=== PATIENT | male | born 1970 | race Caucasian/White ===

== ENCOUNTER 2019-10-03 14:44 | Emergency (ER) | payer BC ==
[2019-10-03] MEDS ORDERED: ONDANSETRON 4 MG/2 ML VIAL ONE (15:03)
[2019-10-03] MEDS ORDERED: FAMOTIDINE 20 MG/2 ML VIAL IV ONE (15:03)
--- NOTE | 2019-10-03 15:23 | RAD REPORT ---
EXAM DESCRIPTION: RAD - Abdomen Acute Series - 10/03/2019 3:16 pm CLINICAL HISTORY: ABD PAIN Nausea and vomiting, patient provided history of liver fibrosis COMPARISON: No comparisons FINDINGS: Lung volumes are low. This accentuates an interstitial pattern that is probably baseline. No peripheral mass, consolidation or failure finding. Heart size and pulmonary vasculature are normal . No pleural effusion, pneumothorax or other acute cardiopulmonary process seen. Bowel gas pattern is nonspecific. No bowel obstruction, free air or other acute findings. Moderate st ool volume fills but does not dilate the left-sided colon from splenic flexure to distal rectum. No s uspicious calcifications. No other suspicious for significant findings. IMPRESSION: Shallow inspiration chest film showing no acute finding. Moderate stool volume left side of the colon. No obstruction, free air or other emergent finding.
[2019-10-03 15:41] LABS: Basophils % 0.2 % (0-1.3); Hematocrit 46.4 % (39.6-49.0); Lymphocytes % 8.6 % (15.3-44.8); MPV 9.5 fL (7.6-11.3); RBC Red Blood Cell Count 4.72 M/uL (4.33-5.43)
[2019-10-03 15:45] LABS: Protime INR 1.07
[2019-10-03 16:00] LABS: ALT/SGPT 61 U/L (12-78); AST/SGOT 38 U/L (15-37); Albumin 4.6 g/dL (3.4-5.0); Alkaline Phosphatase 126 U/L (45-117); BUN Blood Urea Nitrogen 19 mg/dL (7-18); Bicarbonate 25 mmol/L (21-32); Bilirubin Direct 0.2 mg/dL (0-0.2); Bilirubin Total 0.8 mg/dL (0.2-1.0); Glucose Level 104 mg/dL (74-106); Lipase 219 U/L (73-393); Potassium 3.7 mmol/L (3.5-5.1); Protein, Total 8.9 g/dL (6.4-8.2); Sodium Level 138 mmol/L (136-145)
[2019-10-03] MEDS ORDERED: NA CHLORIDE 0.9% 1,000 ML ONE (16:12)
[2019-10-03] MEDS ORDERED: PANTOPRAZOLE 40 MG INJ ONE (16:13)
--- NOTE | 2019-10-03 16:37 | ER ---
Nurse's Notes [facility] Name: Bernardo Glover Age: 48 yrs Sex: Male : 1970 Arrival Date: 10/03/2019 Time: 14:49 Bed 17 Private MD: Diagnosis: Vomiting;Dehydration;Hyperventilation Presentation: 10/03 14:50 Presenting complaint: EMS states: called out for N/V and abd pain that started about 1 em hour ago, reports hx of liver fibrosis. Transition of care: patient was not received from another setting of care. Onset of symptoms was October 03, 2019. Risk Assessment: Do you want to hurt yourself or someone else? Patient reports no desire to harm self or others. Initial Sepsis Screen: Does the patient meet any 2 criteria? No. Patient's initial sepsis screen is negative. Does the patient have a suspected source of infection? No. Patient's initial sepsis screen is negative. Care prior to arrival: Medication(s) given: Normal saline infusion, 500 mL, Phenergan, 12.5 mg, Toradol 30 mg IV initiated. 18 GA, in the right antecubital area. 14:50 Method Of Arrival: EMS: [facility] em 14:50 Acuity: AURELIANO 3 iw Historical: - Allergies: 14:55 No Known Allergies; em - PMHx: 14:55 liver fibrosis; em - PSHx: 14:55 left ankle sx; em - Immunization history:: Adult Immunizations up to date. - Social history:: Smoking status: Patient/guardian denies using tobacco. - Ebola Screening: : Patient negative for fever greater than or equal to 101.5 degrees Fahrenheit, and additional compatible Ebola Virus Disease symptoms Patient denies exposure to infectious person Patient denies travel to an Ebola-affected area in the 21 days before illness onset No symptoms or risks identified at this time. - Family history:: not pertinent. Screenin:49 Abuse screen: Denies threats or abuse. Nutritional screening: No deficits noted. em Tuberculosis screening: No symptoms or risk factors identified. Fall Risk None identified. Assessment: 14:49 General: Appears in no apparent distress. comfortable, Behavior is calm, cooperative. em Pain: Complains of pain in epigastric area Pain currently is 3 out of 10 on a pain scale. at worst was 8 out of 10 on a pain scale. Quality of pain is described as crampy, Pain began 1 hour ago. Neuro: Level of Consciousness is awake, alert, obeys commands, Oriented to person, place, time, situation, Appropriate for age. Cardiovascular: Capillary refill < 3 seconds Patient's skin is warm and dry. Respiratory: Airway is patent Respiratory effort is even, unlabored, Respiratory pattern is regular, symmetrical. GI: Abdomen is flat, Bowel sounds present X 4 quads. Abd is soft X 4 quads Abdomen is tender to palpation in epigastric area. Derm: Skin is intact, is healthy with good turgor, Skin is pink, warm \T\ dry. Musculoskeletal: Capillary refill < 3 seconds, Range of motion: intact in all extremities. 15:56 Reassessment: Patient appears in no apparent distress at this time. Patient and/or em family updated on plan of care and expected duration. Pain level reassessed. Patient is alert, oriented x 3, equal unlabored respirations, skin warm/dry/pink. 17:00 Reassessment: will be discharged after completion of NS bolus and orthostatics. em 17:32 Reassessment: Patient appears in no apparent distress at this time. Patient and/or em family updated on plan of care and expected duration. Pain level reassessed. Patient is alert, oriented x 3, equal unlabored respirations, skin warm/dry/pink. Vital Signs: 14:55 BP 129 / 86; Pulse 94; Resp 18; Temp 97.8(O); Pulse Ox 98% on R/A; Weight 106.59 kg; em Height 6 ft. 0 in. (182.88 cm); Pain 3/10; 15:55 BP 126 / 79; Pulse 91; Resp 18; Pulse Ox 99% on R/A; Pain 3/10; em 16:30 BP 114 / 68; Pulse 77; Resp 18; Pulse Ox 99% on R/A; em 17:39 BP 114 / 61 LA Supine (auto/lg); Pulse 88; Resp 22; Pulse Ox 98% ; ms 17:39 BP 115 / 76 LA Sitting (auto/lg); Pulse 86; Resp 19; Pulse Ox 97% ; ms 17:39 BP 109 / 83 LA Standing (auto/lg); Pulse 98; Resp 20; Pulse Ox 100% ; ms 14:55 Body Mass Index 31.87 (106.59 kg, 182.88 cm) em ED Course: 14:49 Patient arrived in ED. em 14:49 Patient has correct armband on for positive identification. Placed in gown. Bed in low em position. Call light in reach. Side rails up X2. Adult w/ patient. hall monitor on. Pulse ox on. NIBP on. 14:49 Maintain EMS IV. Dressing intact. Good blood return noted. Site clean \T\ dry. Gauge \T\ em site: 18 G RAC. 14:50 Art Reeder MD is Attending Physician. [facility] 14:55 Arm band placed on. em 14:56 Sarabjit Pate LVN is Primary Nurse. em 15:24 Triage completed. iw 16:36 Erick Mann MD is Referral Physician. lynette 17:49 No provider procedures requiring assistance completed. IV discontinued, intact, em bleeding controlled, No redness/swelling at site. Pressure dressing applied. Administered Medications: 15:28 Drug: Zofran 4 mg Route: IVP; Site: right antecubital; iw 16:25 Follow up: Response: No adverse reaction; Nausea is decreased em 15:30 Drug: Pepcid 20 mg Route: IVP; Site: right antecubital; iw 16:24 Follow up: Response: No adverse reaction em 16:13 Not Given (Duplicate Order): ProTONIX 40 mg IVP once lynette 16:17 Drug: NS 0.9% 1000 ml Route: IV; Rate: 1 bolus; Site: right antecubital; em 17:34 Follow up: IV Status: Completed infusion; IV Intake: 1000ml em Intake: 17:34 IV: 1000ml; Total: 1000ml. em Outcome: 16:36 Discharge ordered by . [facility] 17:49 Discharged to home ambulatory, with family. em 17:49 Condition: good 17:49 Discharge instructions given to patient, family, Instructed on discharge instructions, follow up and referral plans. medication usage, Demonstrated understanding of instructions, follow-up care, medications, Prescriptions given X 2. 17:55 Patient left the ED. em Signatures: Art Reeder MD MD cha Munoz, Edgar, PEARL TECHNICIAN PEARL TECHNICIAN em Lorena Noyola, RN RN Alexandria Limon ms
--- NOTE | 2019-10-03 16:37 | EDPHYS ---
Physician Documentation [facility] Name: Bernardo Glover Age: 48 yrs Sex: Male : 1970 Arrival Date: 10/03/2019 Time: 14:49 Bed 17 Private MD: ED Physician Art Reeder HPI: 10/03 16:13 This 48 yrs old Male presents to ER via EMS with complaints of Abdominal lynette Pain, Nausea/Vomiting. 16:13 The patient presents to the emergency department with nausea, that is moderate, lynette vomiting, that is continuous. Onset: The symptoms/episode began/occurred just prior to arrival. Possible causes: unknown. The symptoms are aggravated by movement. Severity of symptoms: At their worst the symptoms were moderate in the emergency department the symptoms have improved moderately. Historical: - Allergies: 14:55 No Known Allergies; em - PMHx: 14:55 liver fibrosis; em - PSHx: 14:55 left ankle sx; em - Immunization history:: Adult Immunizations up to date. - Social history:: Smoking status: Patient/guardian denies using tobacco. - Ebola Screening: : Patient negative for fever greater than or equal to 101.5 degrees Fahrenheit, and additional compatible Ebola Virus Disease symptoms Patient denies exposure to infectious person Patient denies travel to an Ebola-affected area in the 21 days before illness onset No symptoms or risks identified at this time. - Family history:: not pertinent. ROS: 16:13 Constitutional: Negative for fever, chills, and weight loss, Eyes: Negative for injury, lynette pain, redness, and discharge, ENT: Negative for injury, pain, and discharge, Neck: Negative for injury, pain, and swelling, Cardiovascular: Negative for chest pain, palpitations, and edema, Respiratory: Negative for shortness of breath, cough, wheezing, and pleuritic chest pain, Back: Negative for injury and pain, : Negative for injury, bleeding, discharge, and swelling, MS/Extremity: Negative for injury and deformity, Skin: Negative for injury, rash, and discoloration, Neuro: Negative for headache, weakness, numbness, tingling, and seizure, Psych: Negative for depression, anxiety, suicide ideation, homicidal ideation, and hallucinations, Allergy/Immunology: Negative for hives, rash, and allergies, Endocrine: Negative for neck swelling, polydipsia, polyuria, polyphagia, and marked weight changes, Hematologic/Lymphatic: Negative for swollen nodes, abnormal bleeding, and unusual bruising. 16:13 Abdomen/GI: Positive for nausea and vomiting. Exam: 16:13 Constitutional: This is a well developed, well nourished patient who is awake, alert, lynette and in no acute distress. Head/Face: Normocephalic, atraumatic. Eyes: Pupils equal round and reactive to light, extra-ocular motions intact. Lids and lashes normal. Conjunctiva and sclera are non-icteric and not injected. Cornea within normal limits. Periorbital areas with no swelling, redness, or edema. ENT: Nares patent. No nasal discharge, no septal abnormalities noted. Tympanic membranes are normal and external auditory canals are clear. Oropharynx with no redness, swelling, or masses, exudates, or evidence of obstruction, uvula midline. Mucous membranes moist. Neck: Trachea midline, no thyromegaly or masses palpated, and no cervical lymphadenopathy. Supple, full range of motion without nuchal rigidity, or vertebral point tenderness. No Meningismus. Chest/axilla: Normal chest wall appearance and motion. Nontender with no deformity. No lesions are appreciated. Cardiovascular: Regular rate and rhythm with a normal S1 and S2. No gallops, murmurs, or rubs. Normal PMI, no JVD. No pulse deficits. Respiratory: Lungs have equal breath sounds bilaterally, clear to auscultation and percussion. No rales, rhonchi or wheezes noted. No increased work of breathing, no retractions or nasal flaring. Abdomen/GI: Soft, non-tender, with normal bowel sounds. No distension or tympany. No guarding or rebound. No evidence of tenderness throughout. Back: No spinal tenderness. No costovertebral tenderness. Full range of motion. Male : Normal genitalia with no discharge or lesions. Skin: Warm, dry with normal turgor. Normal color with no rashes, no lesions, and no evidence of cellulitis. MS/ Extremity: Pulses equal, no cyanosis. Neurovascular intact. Full, normal range of motion. Neuro: Awake and alert, GCS 15, oriented to person, place, time, and situation. Cranial nerves II-XII grossly intact. Motor strength 5/5 in all extremities. Sensory grossly intact. Cerebellar exam normal. Normal gait. Psych: Awake, alert, with orientation to person, place and time. Behavior, mood, and affect are within normal limits. Vital Signs: 14:55 BP 129 / 86; Pulse 94; Resp 18; Temp 97.8(O); Pulse Ox 98% on R/A; Weight 106.59 kg; em Height 6 ft. 0 in. (182.88 cm); Pain 3/10; 15:55 BP 126 / 79; Pulse 91; Resp 18; Pulse Ox 99% on R/A; Pain 3/10; em 16:30 BP 114 / 68; Pulse 77; Resp 18; Pulse Ox 99% on R/A; em 17:39 BP 114 / 61 LA Supine (auto/lg); Pulse 88; Resp 22; Pulse Ox 98% ; ms 17:39 BP 115 / 76 LA Sitting (auto/lg); Pulse 86; Resp 19; Pulse Ox 97% ; ms 17:39 BP 109 / 83 LA Standing (auto/lg); Pulse 98; Resp 20; Pulse Ox 100% ; ms 14:55 Body Mass Index 31.87 (106.59 kg, 182.88 cm) em MDM: 14:50 Patient medically screened. [facility] 16:15 Data reviewed: vital signs, nurses notes, lab test result(s), EKG, radiologic studies, [facility] plain films. 10/03 14:51 Order name: Basic Metabolic Panel [facility] 10/03 14:51 Order name: CBC with Diff [facility] 10/03 14:51 Order name: Creatinine for Radiology [facility] 10/03 14:51 Order name: Hepatic Function [facility] 10/03 14:51 Order name: Lipase [facility] 10/03 14:51 Order name: Acetaminophen [facility] 10/03 14:51 Order name: ETOH Level [facility] 10/03 14:51 Order name: PT-INR [facility] 10/03 14:51 Order name: Ptt, Activated [facility] 10/03 14:51 Order name: Salicylate [facility] 10/03 14:51 Order name: Urine Drug Screen [facility] 10/03 15:43 Order name: CBC with Automated Diff; Complete Time: 16:11 [facility] 10/03 15:46 Order name: Protime (+INR); Complete Time: 16:11 [facility] 10/03 15:46 Order name: PTT, Activated Partial Thromb; Complete Time: 16:11 [facility] 10/03 14:51 Order name: EKG; Complete Time: 14:52 [facility] 10/03 14:53 Order name: Abdomen Acute Series XRAY [facility] 10/03 15:39 Order name: RAD; Complete Time: 15:42 [facility] 10/03 15:57 Order name: Salicylates Level; Complete Time: 16:11 [facility] 10/03 16:00 Order name: Basic Metabolic Panel; Complete Time: 16:11 [facility] 10/03 16:00 Order name: Liver (Hepatic) Function; Complete Time: 16:11 [facility] 10/03 16:00 Order name: Lipase; Complete Time: 16:11 [facility] 10/03 16:01 Order name: Acetaminophen Level; Complete Time: 16:11 [facility] 10/03 16:01 Order name: Alcohol Serum/Plasma; Complete Time: 16:11 [facility] 10/03 16:10 Order name: Creatinine (Radiology Only); Complete Time: 16:11 [facility] 10/03 16:42 Order name: Urine Dipstick--Ancillary (enter results) 10/03 16:56 Order name: Urine Drug Screen [facility] 10/03 14:51 Order name: IV Saline Lock; Complete Time: 14:57 [facility] 10/03 14:51 Order name: Labs collected and sent; Complete Time: 14:59 [facility] 10/03 14:51 Order name: EKG - Nurse/Tech; Complete Time: 14:52 [facility] 10/03 14:51 Order name: Urine Dipstick-Ancillary (obtain specimen); Complete Time: 16:42 [facility] 10/03 16:35 Order name: Orthostatics; Complete Time: 17:49 [facility] Administered Medications: 15:28 Drug: Zofran 4 mg Route: IVP; Site: right antecubital; iw 16:25 Follow up: Response: No adverse reaction; Nausea is decreased em 15:30 Drug: Pepcid 20 mg Route: IVP; Site: right antecubital; iw 16:24 Follow up: Response: No adverse reaction em 16:13 Not Given (Duplicate Order): ProTONIX 40 mg IVP once lynette 16:17 Drug: NS 0.9% 1000 ml Route: IV; Rate: 1 bolus; Site: right antecubital; em 17:34 Follow up: IV Status: Completed infusion; IV Intake: 1000ml em Disposition: 10/03/19 16:36 Discharged to Home. Impression: Vomiting, Dehydration, Hyperventilation. - Condition is Stable. - Discharge Instructions: Dehydration, Adult, Hyperventilation, Nausea and Vomiting, Adult, Nausea and Vomiting, Adult, [id number], Dehydration, Adult, [id number]. - Prescriptions for Pepcid 20 mg Oral Tablet - take 1 tablet by ORAL route every 12 hours for 10 days; 20 tablet. Zofran 4 mg Oral Tablet - take 1 tablet by ORAL route every 12 hours As needed; 20 tablet. - Medication Reconciliation Form, Thank You Letter, Antibiotic Education, Prescription Opioid Use, Work release form form. - Follow up: Private Physician; When: 2 - 3 days; Reason: Recheck today's complaints, Continuance of care, Re-evaluation by your physician. Follow up: Erick Mann; When: 2 - 3 days; Reason: Recheck today's complaints, Continuance of care, Re-evaluation by your physician. - Problem is new. - Symptoms have improved. Signatures: Dispatcher [employer] Art Redmond MD MD cha Munoz, Edgar, PUBLIC SPEAKING PROFESSOR PUBLIC SPEAKING PROFESSOR Lorena Lucio RN RN iw Corrections: (The following items were deleted from the chart) 17:55 16:36 10/03/2019 16:36 Discharged to Home. Impression: Vomiting; Dehydration; em Hyperventilation. Condition is Stable. Discharge Instructions: Dehydration, Adult, Hyperventilation, Nausea and Vomiting, Adult, Nausea and Vomiting, Adult, [id number], Dehydration, Adult, [id number]. Prescriptions for Pepcid 20 mg Oral Tablet - take 1 tablet by ORAL route every 12 hours for 10 days; 20 tablet, Zofran 4 mg Oral Tablet - take 1 tablet by ORAL route every 12 hours As needed; 20 tablet. and Forms are Medication Reconciliation Form, Thank You Letter, Antibiotic Education, Prescription Opioid Use. Follow up: Private Physician; When: 2 - 3 days; Reason: Recheck today's complaints, Continuance of care, Re-evaluation by your physician. Follow up: Erick Mann; When: 2 - 3 days; Reason: Recheck today's complaints, Continuance of care, Re-evaluation by your physician. Problem is new. Symptoms have improved. lynette
[2019-10-03 16:56] LABS: Barbiturates NEGATIVE (NEGATIVE); Benzodiazepines NEGATIVE (NEGATIVE); Cocaine NEGATIVE (NEGATIVE); METHAMPHETAM NEGATIVE (NEGATIVE); Methadone NEGATIVE (NEGATIVE); Opiates NEGATIVE (NEGATIVE); Phencyclidine NEGATIVE (NEGATIVE); THC Cannibis NEGATIVE (NEGATIVE)
[2019-10-03 19:49] VITALS: BP 109/83; O2SAT 100
[2019-10-03 20:28] LABS: Urine Blood NEGATIVE (NEG); Urine Glucose NEGATIVE (NEG); Urine Protein TRACE (NEG); Urine pH 6.5 (5.0-7.0)
--- NOTE | 2019-10-04 12:46 | EKG ---
Test Date: 2019-10-03 Test Time: 14:50:36 Fruit Thinner Machine Operator: JESUS MANUEL MEASUREMENT RESULTS: Intervals: Rate: 89 MO: 168 QRSD: 80 QT: 348 QTc: 423 [place]: P: 46 MO: 168 QRS: 64 T: 29 INTERPRETIVE STATEMENTS: Normal sinus rhythm Normal ECG Compared to ECG 07/26/2005 15:58:00 No significant changes Electronically Signed On 10-04-19 12:44:40 PAVER by Yaya Leung
== END 2019-10-03 17:55 | disposition home or self-care (01) ==
LOC: ER 14:44
DX: E86.0 Dehydration (principal); R06.4 Hyperventilation
CPT/HCPCS: 96361; 93005; 85025; 80048; 36415; 80320; 80329 ×2; 85610; 80076; 80307 ×8; 85730; 81003; 83690; 74022; 96375; 96374; 99284; J7030; J2405; C9113

== ENCOUNTER 2022-04-02 23:46 | Emergency (ER) | payer BC ==
--- OUTSIDE RECORDS SUMMARY | 2022-04-02 23:49 | XMS REPORT | Continuity of Care Document ---
:1970 Author Organization [facility] t Address [address] [place] [address] Care Team Providers Name Role Phone America Thomas MD Primary Care Physician Helga Young Attending Clinician Unavailable America Thomas MD Attending Clinician LAB90 Attending Clinician Unavailable Peewee BROOKS Attending Clinician AMERICA THOMAS Attending Clinician Unavailable PHOENIXID-VIRAJ HEATH Attending Clinician Unavailab Goodman Attending Clinician Unavailable MD Estephania MCKNIGHT Attending Clinician Unavailable RAYSA Attending Clinician Unavailable Helga Young Admitting Clinician Unavailable ROXANNA Admitting Clinician Unavailable MD Estephania MCKNIGHT Admitting Clinician Unavailable Payers Payer Name Policy Type Policy Number Effective Date Expiration Date S ource Problems Condition Condition Condition Status Onset Resolution Last Treating Co mments Source Name Details Category Date Date Treatment Clinician Date Chronic Chronic Disease Active [facility] right right 3-03 Seybold shoulder shoulder 00:00: pain pain 00 Rotator Rotator Disease Active [facility] 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 00:00: y of right y of right 00 shoulder shoulder Family Family Disease Active [facility] history of history of 3-03 Se ybold rheumatoid rheumatoid 00:00: arthritis arthritis 00 Primary Primary Disease Active [facility] hypertensi hypertensi 1-18 Se ybold on on 00:00: 00 Hyperlipid Hyperlipid Disease Active K elsey emia emia Seybold No known No known Disease Kelse y active active Seybold problems problems Allergies, Adverse Reactions, Alerts Allergy Allergy Status Severity Reaction(s) Onset Inactive Treating Comm ents Source Name Type Date Date Clinician No Known DA Active [facility]22 [place] [facility] Social History Social Habit Start Date Stop Date Quantity Comments Source Alcohol intake 2022-02-15 2022-02-15 Ex-drinker [facility] cuevas 00:00:00 00:00:00 (finding) Education 2022-01-25 2022-01-25 15 Heavenreginald Harman 00:00:00 00:00:00 Tobacco use and 2021-09-21 2021-09-21 Smokeless tobacco Juan C larson Seybamena exposure 00:00:00 00:00:00 non-user Sex Ass[birth year] At [birth year] [facility] ibarra 00:00:00 00:00:00 Smoking Status Start Date Stop Date Source Never smoked tobacco [facility] beckwith Medications Ordered Filled Start Stop Current Ordering Indication Dosage Frequency Signature Comments Components Source Medication Medication Date Date Medication? Clinician (SIG) Name Name Aspirin 81 Yes 81mg Take 81 mg K elsey MG oral 3-24 by mouth Seybold Tablet 15:59: daily Delayed 03 Response Omeprazole Yes 20mg Take 20 mg K elsey 20 MG oral 3-24 by mouth Seybo ld Delayed 15:59: daily Release 03 Capsule Amoxicillin Yes [id number] 1{tbl} Take 1 [facility] -Pot 3-24 tablet by Seybold Clavulanate 00:00: mouth in 875-125 MG 00 the oral Tablet morning and 1 tablet in the evening. Aspirin 81 Yes 81mg Take 81 mg K elsey MG oral 3-03 by mouth Seybold Tablet 07:57: daily Delayed 14 Response Omeprazole Yes 20mg Take 20 mg K elsey 20 MG oral 3-03 by mouth Seybo ld Delayed 07:57: daily Release 14 Capsule Rosuvastati Yes Heaven oneil Calcium 2-13 Seybold 10 MG oral 00:00: Tablet 00 Rosuvastati 2-0 Yes Heaven n Calcium 2-13 Seybold 10 MG oral 00:00: Tablet 00 Aspirin 81 2-0 Yes 81mg Take 81 mg K elsey MG oral 1-18 by mouth Seybold Tablet 08:04: daily Delayed 09 Response Omeprazole 2021-0 Yes 20mg Take 20 mg K elsey 20 MG oral 1-18 by mouth Seybo ld Delayed 08:04: daily Release 09 Capsule Ibuprofen 2021-0 Yes [facility] 800 MG oral 1-07 Seybold Tablet 00:00: 00 Ibuprofen 2021-0 Yes [facility] 800 MG oral 1-07 Seybold Tablet 00:00: 00 Ibuprofen 2021-0 Yes [facility] 800 MG oral 1-07 Seybold Tablet 00:00: 00 Pantoprazol 2020- Yes [id number] 40mg Take 1 [facility] e Sodium 40 2-14 tablet (40 Se ybold MG oral 00:00: mg total) Tablet 00 by mouth Delayed daily Response Pantoprazol 2020- Yes [id number] 40mg Take 1 [facility] e Sodium 40 2-14 tablet (40 Se ybold MG oral 00:00: mg total) Tablet 00 by mouth Delayed daily Response Pantoprazol 2020-11 Yes [id number] 40mg Take 1 Heaven e Sodium 40 2-14 tablet (40 Se ybold MG oral 00:00: mg total) Tablet 00 by mouth Delayed daily Response Hyoscyamine 2020-11 Yes [id number] .125mg Q4H Take 1 [facility] Sulfate 2-03 tablet Seybold 0.125 MG 00:00: (0.125 mg oral Tablet 00 total) by mouth every 4 hours as needed for cramping Hyoscyamine 2020-11 Yes [id number] .125mg Q4H Take 1 [facility] Sulfate 2-03 tablet Seybold 0.125 MG 00:00: (0.125 mg oral Tablet 00 total) by mouth every 4 hours as needed for cramping Hyoscyamine 2020-11 Yes [id number] .125mg Q4H Take 1 [facility] Sulfate 2-03 tablet Seybold 0.125 MG 00:00: (0.125 mg oral Tablet 00 total) by mouth every 4 hours as needed for cramping Gatifloxaci 2020-11 Yes Heaven n (ZYMAXID) 1-10 Seybold 0.5 % 00:00: ophthalmic 00 Solution Bacitracin- 2020-11 Yes [facility] Polymyxin B 1-10 Seybold [id number] 00:00: UNIT/GM 00 ophthalmic Ointment Gatifloxaci 2020-11 Yes Heaven n (ZYMAXID) 1-10 Seybold 0.5 % 00:00: ophthalmic 00 Solution Bacitracin- 2020-11 Yes [facility] Polymyxin B 1-10 Seybold [id number] 00:00: UNIT/GM 00 ophthalmic Ointment Gatifloxaci 2020-11 Yes Heaven n (ZYMAXID) 1-10 Seybold 0.5 % 00:00: ophthalmic 00 Solution Bacitracin- 2020-11 Yes [facility] Polymyxin B 1-10 Seybold [id number] 00:00: UNIT/GM 00 ophthalmic Ointment Aspirin 81 2020-11 Yes 81mg Take 81 mg K elsey MG oral 0-28 by mouth Seybold Tablet 14:03: daily Delayed 13 Response Omeprazole 2020-11 Yes 20mg Take 20 mg K elsey 20 MG oral 0-28 by mouth Seybo ld Delayed 14:03: daily Release 13 Capsule Pantoprazol 2020-11 Yes [id number] 40mg Take 1 Heaven e Sodium 40 0-28 tablet (40 Se ybold MG oral 00:00: mg total) Tablet 00 by mouth Delayed daily Response Losartan Yes 1{tbl} Take 1 Kelse y Potassium-H 9-07 tablet by Sey bold CTZ 50-12.5 00:00: mouth MG oral 00 daily Tablet Losartan Yes 1{tbl} Take 1 Kelse y Potassium-H 9-07 tablet by Sey bold CTZ 50-12.5 00:00: mouth MG oral 00 daily Tablet Losartan Yes 1{tbl} Take 1 Kelse y Potassium-H 9-07 tablet by Sey bold CTZ 50-12.5 00:00: mouth MG oral 00 daily Tablet Losartan Yes 1{tbl} Take 1 Kelse y Potassium-H 9-07 tablet by Sey bold CTZ 50-12.5 00:00: mouth MG oral 00 daily Tablet Rosuvastati 2019-11 10mg Take 10 mg Heaven n Calcium 01-02 by mouth Seybo ld 10 MG oral 00:00: 05:59 daily Tablet 00 :00 Immunizations Ordered Immunization Filled Immunization Date Status Commen ts Source Name Name Tdap- (Boostrix, 2021 Completed [facility] Adacel) 00:00:00 Shingles IM 2021 Completed [facility] James d (Shingrix) 00:00:00 Tdap- (Boostrix, 2021 Completed [facility] Adacel) 00:00:00 Shingles IM 2021 Completed [facility] James d (Shingrix) 00:00:00 Covid-19 Vaccine 2021-09-28 Completed [facility] (awe.sm), Mrna-lnp, 00:00:00 Scott Protein, Pf, 30mcg/0.3ml,IM Covid-19 Vaccine 2021-09-28 Completed [facility] (awe.sm), Mrna-lnp, 00:00:00 Scott Protein, Pf, 30mcg/0.3ml,IM Covid-19 Vaccine 2021-09-28 Completed [facility] (awe.sm), Mrna-lnp, 00:00:00 Scott Protein, Pf, 30mcg/0.3ml,IM Influenza Virus 2021-09-21 Completed [facility] Bowers ybamena Vaccine, age 6 00:00:00 months and up Influenza Virus 2021-09-21 Completed [facility] ibarra Vaccine, age 6 00:00:00 months and up Influenza Virus 2021-09-21 Completed [facility] Bowers ybold Vaccine, age 6 00:00:00 months and up Influenza Virus 2021-09-21 Completed [facility] Bowers ybold Vaccine, age 6 00:00:00 months and up Vital Signs Vital Name Observation Time Observation Value Comments Source Systolic blood pressure 2022-02-15 20:58:00 122 mm[Hg] [facility] Harman Diastolic blood 2022-02-15 20:58:00 83 mm[Hg] Bill Harman pressure Heart rate 2022-02-15 20:58:00 53 /min [facility] Body temperature 2022-02-15 20:58:00 36.67 Jess Gilma ey Seybold Respiratory rate 2022-02-15 20:58:00 14 /min Gilma ey Seybold Body height 2022-02-15 20:58:00 182.9 cm [facility] S eybold Body weight 2022-02-15 20:58:00 112.946 kg [facility] S eybold BMI 2022-02-15 20:58:00 33.77 kg/m2 [facility] S eybold Systolic blood pressure 2022-01-25 13:56:00 133 mm[Hg] [facility] Seybold Diastolic blood 2022-01-25 13:56:00 75 mm[Hg] Kelse y Seybold pressure Heart rate 2022-01-25 13:56:00 67 /min [facility] S eybold Body temperature 2022-01-25 13:56:00 36.44 Jess Gilma ey Seybold Respiratory rate 2022-01-25 13:56:00 14 /min Gilma ey Seybold Body height 2022-01-25 13:56:00 182.9 cm [facility] S eybold Body weight 2022-01-25 13:56:00 111.585 kg [facility] S eybold BMI 2022-01-25 13:56:00 33.36 kg/m2 [facility] S eybold Systolic blood pressure 2021 14:03:00 134 mm[Hg] [facility] Seybold Diastolic blood 2021 14:03:00 72 mm[Hg] Kelse y Seybold pressure Heart rate 2021 14:03:00 76 /min [facility] S eybold Body temperature 2021 14:03:00 36.33 Jess Gilma ey Seybold Respiratory rate 2021 14:03:00 14 /min Gilma ey Seybold Body height 2021 14:03:00 182.9 cm [facility] S eybold Systolic blood pressure 2021-09-21 19:05:00 120 mm[Hg] [facility] Seybold Diastolic blood 2021-09-21 19:05:00 82 mm[Hg] Kelse y Seybold pressure Body temperature 2021-09-21 19:05:00 36.56 Jess Gilma ey Seybold Respiratory rate 2021-09-21 19:05:00 14 /min Gilma Hamran Body height 2021-09-21 19:05:00 182.9 cm [facility] Body weight 2021-09-21 19:05:00 111.131 kg [facility] BMI 2021-09-21 19:05:00 33.23 kg/m2 [facility] Height 2019-04-03 10:28:00 72 [in_us] NPI:[id number] Weight 2019-04-03 10:28:00 236.1 [lb_av] NPI:[id number] Body Mass Index 2019-04-03 10:28:00 32.02 kg/m2 NPI:1 [id number] Calculated Procedures This patient has no known procedures. Encounters Start End Encounter Admission Attending Care Care Encounter Source Date/Time Date/Time Type Type Clinicians Facility Department ID 2022-03-23 2022-03-23 Outpatient MARIAELENA Cunningham DAYS [id number] -[id number] [facility] 06:05:00 06:05:00 Juan [id number] [facility] 2022-03-23 2022-03-23 Outpatient MARIAELENA Cunningham DAYS [id number] [facility] 06:05:00 06:05:00 Juan 92 [facility] 2022-02-15 2022-02-15 Office Richmond Thomas [id number] [facility] 16:00:00 16:15:00 Visit Mary Carmen Larson [id number] Se ybold Somogyi [id number] 2022-01-25 2022-01-25 Outpatient LAB90 [facility] PANCHAL [id number] [facility] 08:45:00 08:45:00 Seybol d 2022-01-25 2022-01-25 Office Richmond Vides [id number] [facility] 08:00:00 08:30:00 Visit Santana Larson [id number] Se ybold [id number] 2021 2021 Outpatient LAB90 [facility] PANCHAL [id number] [facility] 08:45:00 08:45:00 Seybol d 2021 2021 Office Richmond Thomas [id number] [facility] 08:00:00 08:30:00 Visit Mary Carmen Larson [id number] Se stacey Marquesyi [id number] 2021-11-07 2021-11-07 Outpatient HEAVEN THOMAS [id number] [facility] 00:00:00 00:00:00 MARY CARMEN Seybol d 2021-10-26 2021-10-26 Outpatient HEAVEN THOMAS [id number] [facility] 00:00:00 00:00:00 MARY CARMEN Seybol d 2021-09-28 2021-09-28 Outpatient COVID-PFIZE [facility]EN PANCHAL [id number] [facility] 13:30:00 13:30:00 R Reginald STEEN 2021-09-21 2021-09-21 Office [place] Thomas [id number] [facility] 13:58:25 14:28:25 Visit Mary Carmen Larson [id number] Se stacey Avogyi [id number] 2021-08-15 2021-08-15 [facility] [id number] [place] 00:00:00 00:00:00 SARABJIT [address] 2021-05-05 2021-05-05 [id number] [place] 00:00:00 00:00:00 SARABJIT [address] 2021-05-01 2021-05-01 [facility] [id number] [place] 00:00:00 00:00:00 SARABJIT [address] 2021-05-01 2021-05-01 [facility] [id number] [place] 00:00:00 00:00:00 SARABJIT [address] 2020-08-31 2020-08-31 [facility] [id number] [place] 00:00:00 00:00:00 SARABJIT [address] 2020-08-02 2020-08-02 Outpatient [facility] [id number] [place] 00:00:00 00:00:00 SARABJIT [address] 2019-04-03 2019-04-03 Appointmen MCKAYLA TABARES [id number] NPI:152 09:00:00 09:00:00 t; ESTEPHANIA TABARES, Surgery 8 [id number] [facility] MR[facility]ri Results Test Description Test Time Test Comments Results Result Comments Source SARS-CoV-2 (COVID-19) RNA [Presence] in Respiratory sp ecimen by 2021-05-01 21:44:10 ELEN with probe detection Test Item Value Reference Range Interpretation Comme nts SARS-CoV-2 (COVID-19) RNA [Presence] in Respiratory Not detected No t-Detected specimen by ELEN with probe detection (test code = 07538-1) Whether patient is employed in a healthcare setting (test code = 90750-4) Whether the patient has symptoms related to condition of interest (test code = 60134-0) Patient was hospitalized because of this condition (test code = 35129-7) Whether the patient was admitted to intensive care unit (ICU) for condition of interest (test code = 16868-6) Whether patient resides in a congregate care setting (test code = 32891-0)
[2022-04-03] MEDS ORDERED: FAMOTIDINE 20 MG/2 ML VIAL IV ONE (01:46)
[2022-04-03] MEDS ORDERED: NA CHLORIDE 0.9% 1,000 ML ONE (01:46)
[2022-04-03] MEDS ORDERED: ONDANSETRON 4 MG/2 ML VIAL ONE (01:46)
[2022-04-03 02:02] LABS: Absolute Lymphocytes (CBC) 1.4 K/uL (0.7-4.9); Hematocrit 45.6 % (39.6-49.0); Lymphocytes % 11.4 % (15.3-44.8); RBC Red Blood Cell Count 4.71 M/uL (4.33-5.43)
[2022-04-03 02:14] LABS: Albumin 3.8 g/dL (3.4-5.0); Bilirubin Total 1.2 mg/dL (0.2-1.0); Potassium 3.2 mmol/L (3.5-5.1); Protein, Total 7.8 g/dL (6.4-8.2)
[2022-04-03] MEDS ORDERED: POTASSIUM 25 MEQ EFFERV TAB ONE (02:42)
[2022-04-03] MEDS ORDERED: ONDANSETRON 4 MG (ODT) TAB ONE (03:14)
--- NOTE | 2022-04-03 03:16 | EDPHYS ---
Physician Documentation [facility] Name: Bernardo Glover Age: 51 yrs Sex: Male : 1970 Arrival Date: 04/02/2022 Time: 23:49 Bed 4 Private MD: ED Physician Florian Valiente HPI: 04/03 00:02 This 51 yrs old Male presents to ER via Ambulatory with complaints of Abdominal jh7 Cramping, Vomiting. 00:02 Patient presents to the ER complaining of abdominal cramping and vomiting since last jh7 night. Reports significant epigastric pain with no tenderness. Denies diarrhea and fever. States that he is seeing a GI doctor multiple times over this.. 00:02 . jh7 Historical: - Allergies: 00:02 No Known Allergies; lp1 - Home Meds: 00:02 Ultracet Oral [Active]; losartan oral [Active]; Protonix Oral [Active]; tizanidine oral lp1 [Active]; Prednisone Oral [Active]; aspirin 81 mg Oral TbEC 1 tab once daily [Active]; - PMHx: 00:02 liver fibrosis; lp1 - PSHx: 00:02 Rotator cuff repair; lp1 - Immunization history:: Adult Immunizations up to date, Client reports receiving the 2nd dose of the Covid vaccine. - Social history:: Smoking status: Patient denies any tobacco usage or history of. ROS: 00:02 Constitutional: Negative for fever, chills, and weight loss, Cardiovascular: Negative jh for chest pain, palpitations, and edema, Respiratory: Negative for shortness of breath, cough, wheezing, and pleuritic chest pain, Back: Negative for injury and pain, Skin: Negative for injury, rash, and discoloration, Neuro: Negative for headache, weakness, numbness, tingling, and seizure. 00:02 Abdomen/GI: Positive for abdominal pain, nausea and vomiting, Negative for diarrhea. 00:02 All other systems are negative. Exam: 00:02 Constitutional: This is a well developed, well nourished patient who is awake, alert, jh7 and in no acute distress. Chest/axilla: Normal chest wall appearance and motion. Nontender with no deformity. No lesions are appreciated. Cardiovascular: Regular rate and rhythm with a normal S1 and S2. No gallops, murmurs, or rubs. Normal PMI, no JVD. No pulse deficits. Respiratory: Lungs have equal breath sounds bilaterally, clear to auscultation and percussion. No rales, rhonchi or wheezes noted. No increased work of breathing, no retractions or nasal flaring. Back: No spinal tenderness. No costovertebral tenderness. Full range of motion. Neuro: Awake and alert, GCS 15, oriented to person, place, time, and situation. 00:02 Abdomen/GI: Inspection: abdomen appears normal, Bowel sounds: normal, Palpation: abdomen is soft and non-tender, Patient vomiting. Vital Signs: 00:04 BP 122 / 84; Pulse 96; Resp 18; Temp 98(O); Pulse Ox 100% on R/A; Weight 108.86 kg (R); lp1 Height 6 ft. 0 in. (182.88 cm); Pain 7/10; 02:28 BP 122 / 86; Pulse 84; Resp 18 S; Pulse Ox 100% on R/A; lg3 03:28 BP 134 / 88; Pulse 86; Resp 18 S; Pulse Ox 99% on R/A; lg3 00:04 Body Mass Index 32.55 (108.86 kg, 182.88 cm) lp1 MDM: 04/02 23:51 Patient medically screened. [facility] 04/03 03:00 Differential diagnosis: Gastritis, Cholecystitis, PUD, Viral Syndrome. Data reviewed: [facility] vital signs, nurses notes. Data interpreted: Pulse oximetry: is 100 %. Interpretation: normal. 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 03:00 ED course: The patient remained hemodynamically stable throughout his ER visit. His [facility] labs were unremarkable, his CT was negative, and his potassium was treated in the ER. Medication significantly improved his symptoms. He reported that he has this issue once a year, has had several scopes, an "every test in the book", but nothing is ever wrong. Advised him to follow-up with his GI doctor. If his symptoms return, or worsen, he was advised to return to the ER. The patient agreed with the plan of care.. 04/03 00:05 Order name: CBC with Diff; Complete Time: : [facility] 04/03 00:05 Order name: CMP; Complete Time: : [facility] 04/03 00:05 Order name: Lipase; Complete Time: : [facility] 04/03 00:05 Order name: CT Abd/Pelvis - IV Contrast Only [facility] 04/03 00:05 Order name: IV Saline Lock; Complete Time: [facility] 04/03 00:05 Order name: Labs collected and sent; Complete Time: [facility] Administered Medications: 01:30 Drug: NS 0.9% 1000 ml Route: IV; Rate: 1 bolus; Site: left antecubital; bb 01:30 Drug: Pepcid (famotidine) 20 mg {Note: RASS 0.} Route: IVP; Site: left antecubital; bb 02:25 Follow up: Response: No adverse reaction lg3 01:33 Drug: Zofran (Ondansetron) 4 mg Route: IVP; Site: left antecubital; bb 02:25 Follow up: Response: No adverse reaction lg3 02:54 Drug: Potassium Effervescent Tablet 50 mEq Route: PO; lg3 03:07 Follow up: Response: No adverse reaction lg3 03:09 Drug: Ondansetron 4 mg Route: PO; lg3 03:10 Follow up: Response: No adverse reaction lg3 Disposition: 04:24 Co-signature as Attending Physician, Florian Valiente MD. rn Disposition Summary: 04/03/22 03:15 Discharge Ordered Location: Home [facility] Problem: new [facility] Symptoms: are resolved [facility] Condition: Stable [facility] Diagnosis - Nausea with vomiting, unspecified [facility] Followup: [facility] - With: Private Physician - When: 2 - 3 days - Reason: Recheck today's complaints Discharge Instructions: - Discharge Summary Sheet [facility] - Nausea and Vomiting, Adult [facility] Forms: - Medication Reconciliation Form [facility] - Thank You Letter [facility] Prescriptions: - ondansetron 4 mg Oral tablet,disintegrating - place 1 tablet by TRANSLINGUAL route 4 times per day As needed; 20 tablet; [facility] Refills: 0, Product Selection Permitted Signatures: Dispatcher [facility] EDMS Baer, DaisyNIKOLE gorman RN, Roman, MD MD rn Pena, Laura, RN RN lp1 Christine Duenas RN RN lg3 Kari Bryant, WENDY [place] [id number] Corrections: (The following items were deleted from the chart) 02:55 02:54 Patient presents to the ER complaining of abdominal cramping and vomiting since jh7 last night. Reports significant epigastric pain with no tenderness. Denies diarrhea and fever. States that he is seeing a GI doctor multiple times over this.. 7 02:55 02:54 This 51 yrs old Male presents to ER via Ambulatory with complaints of Abdominal 7 Cramping, Vomiting. jh7
--- NOTE | 2022-04-03 03:16 | ER ---
Nurse's Notes [facility] Name: Bernardo Glover Age: 51 yrs Sex: Male : 1970 Arrival Date: 04/02/2022 Time: 23:49 Bed 4 Private MD: Diagnosis: Nausea with vomiting, unspecified Presentation: 04/03 00:01 Chief complaint: Patient states: Vomiting that began yesterday, reports pain to general lp1 abdomen; Denies fever, constipation, diarrhea. Coronavirus screen: At this time, the client does not indicate any symptoms associated with coronavirus-19. Ebola Screen: No symptoms or risks identified at this time. Risk Assessment: Do you want to hurt yourself or someone else? Patient reports no desire to harm self or others. 00:01 Method Of Arrival: Ambulatory lp1 00:01 Acuity: AURELIANO 3 lp1 00:04 Initial Sepsis Screen: Does the patient meet any 2 criteria? No. Patient's initial lp1 sepsis screen is negative. Does the patient have a suspected source of infection? No. Patient's initial sepsis screen is negative. Onset of symptoms was April 03, 2022. Historical: - Allergies: 00:02 No Known Allergies; lp1 - Home Meds: 00:02 Ultracet Oral [Active]; losartan oral [Active]; Protonix Oral [Active]; tizanidine oral lp1 [Active]; Prednisone Oral [Active]; aspirin 81 mg Oral TbEC 1 tab once daily [Active]; - PMHx: 00:02 liver fibrosis; lp1 - PSHx: 00:02 Rotator cuff repair; lp1 - Immunization history:: Adult Immunizations up to date, Client reports receiving the 2nd dose of the Covid vaccine. - Social history:: Smoking status: Patient denies any tobacco usage or history of. Screenin:26 Abuse screen: Denies threats or abuse. Denies injuries from another. Nutritional lg3 screening: No deficits noted. Tuberculosis screening: No symptoms or risk factors identified. Fall Risk None identified. Assessment: 02:26 General: Appears in no apparent distress. comfortable, Behavior is calm, cooperative. lg3 Pain: Complains of pain in abdomen Pain does not radiate. Neuro: No deficits noted. [place] Agitation-Sedation Scale (RASS): 0 - Alert and Calm Level of Consciousness is awake, alert, obeys commands, Oriented to person, place, time, situation. Cardiovascular: No deficits noted. Denies chest pain, shortness of breath, Capillary refill < 3 seconds Clubbing of nail beds is absent JVD is absent Patient's skin is warm and dry. Respiratory: No deficits noted. Airway is patent Trachea midline Respiratory effort is even, unlabored, Respiratory pattern is regular, symmetrical. GI: Abdomen is flat, non-distended, Bowel sounds present X 4 quads. Abd is soft X 4 quads Abdomen is tender to palpation. : No deficits noted. No signs and/or symptoms were reported regarding the genitourinary system. EENT: No deficits noted. No signs and/or symptoms were reported regarding the EENT system. Derm: No deficits noted. No signs and/or symptoms reported regarding the dermatologic system. Skin is intact, is healthy with good turgor, Skin is dry, Skin is pink, warm \T\ dry. Musculoskeletal: No deficits noted. No signs and/or symptoms reported regarding the musculoskeletal system. Circulation, motion, and sensation intact. Capillary refill < 3 seconds, Range of motion: intact in all extremities. 03:28 Reassessment: Patient appears in no apparent distress at this time. No changes from lg3 previously documented assessment. Patient and/or family updated on plan of care and expected duration. Pain level reassessed. Patient is alert, oriented x 3, equal unlabored respirations, skin warm/dry/pink. Patient denies pain at this time. Patient states feeling better. Patient states symptoms have improved. Vital Signs: 00:04 BP 122 / 84; Pulse 96; Resp 18; Temp 98(O); Pulse Ox 100% on R/A; Weight 108.86 kg (R); lp1 Height 6 ft. 0 in. (182.88 cm); Pain 7/10; 02:28 BP 122 / 86; Pulse 84; Resp 18 S; Pulse Ox 100% on R/A; lg3 03:28 BP 134 / 88; Pulse 86; Resp 18 S; Pulse Ox 99% on R/A; lg3 00:04 Body Mass Index 32.55 (108.86 kg, 182.88 cm) lp1 ED Course: 04/02 23:49 Patient arrived in ED. bp1 23:51 Kari Bryant FNP is PHCP. jh7 23:51 Florian Valiente MD is Attending Physician. [facility] er 04/03 00:01 Arm band placed on left ankle. lp1 00:02 Triage completed. lp1 01:18 Christine Duenas, RN is Primary Nurse. lg3 01:25 Initial lab(s) drawn, by me, sent to lab. Inserted saline lock: 20 gauge in left bb antecubital area, using aseptic technique. Blood collected. 02:26 Patient has correct armband on for positive identification. Placed in gown. Bed in low lg3 position. Call light in reach. Side rails up X 1. Client placed on continuous cardiac and pulse oximetry monitoring. NIBP monitoring applied. Door closed. Noise minimized. Warm blanket given. Pillow given. 02:38 CT Abd/Pelvis - IV Contrast Only In Process Unspecified. EDMS 03:27 No provider procedures requiring assistance completed. IV discontinued, intact, lg3 bleeding controlled, No redness/swelling at site. Pressure dressing applied. Administered Medications: 01:30 Drug: NS 0.9% 1000 ml Route: IV; Rate: 1 bolus; Site: left antecubital; bb 01:30 Drug: Pepcid (famotidine) 20 mg {Note: RASS 0.} Route: IVP; Site: left antecubital; bb 02:25 Follow up: Response: No adverse reaction lg3 01:33 Drug: Zofran (Ondansetron) 4 mg Route: IVP; Site: left antecubital; bb 02:25 Follow up: Response: No adverse reaction lg3 02:54 Drug: Potassium Effervescent Tablet 50 mEq Route: PO; lg3 03:07 Follow up: Response: No adverse reaction lg3 03:09 Drug: Ondansetron 4 mg Route: PO; lg3 03:10 Follow up: Response: No adverse reaction lg3 Outcome: 03:15 Discharge ordered by . [facility] er 03:27 Discharged to home ambulatory. lg3 03:27 Condition: stable 03:27 Discharge instructions given to patient, Instructed on discharge instructions, medication usage, Demonstrated understanding of instructions, medications, Prescriptions given X 1. 03:28 Patient left the ED. lg3 Signatures: Dispatcher [employer] EDMS Daisy Baer RN RN bb Letty Nguyen RN RN lp1 Christine Duenas, RN RN lg3 Milly Sherwood, Kari, WEATHERIZATION FIELD TECHNICIAN WEATHERIZATION FIELD TECHNICIAN jh7
[2022-04-03 05:44] VITALS: TEMP 98
[2022-04-03 05:47] VITALS: BP 134/88; O2SAT 99
--- NOTE | 2022-04-03 15:03 | RAD REPORT ---
EXAM DESCRIPTION: CT - Abdomen Pelvis W Contrast - 04/03/2022 6:33 am CLINICAL HISTORY: 51 years, Male, Epigastric pain COMPARISON: None. TECHNIQUE: Contrast-enhanced images of the abdomen and pelvis were performed utilizing 5 mm slice th ickness at 5 mm interval reconstruction from the lung bases to the ischial tuberosities after the adm inistration of IV contrast. In addition multiplanar reformats in the coronal and sagittal plane were obtained and reviewed. This exam was performed according to our departmental dose-optimization protocol, which includes auto mated exposure control, adjustment of the mA and/or kV according to patient size and/or use of iterat adria reconstruction technique. FINDINGS: The lung bases demonstrate minimal dependent atelectatic changes. The liver demonstrates slight decreased attenuation suggesting mild fatty infiltration. Otherwise the liver, gallbladder, pancreas, spleen and adrenal glands demonstrate to be unremarkable, no focal les ions are noted. The kidneys demonstrate normal uptake of contrast media. No evidence for nephrolithiasis and/or hydro nephrosis. There is a upper pole right renal cyst measuring 1.8 x 1.9 cm on image 28/120 Grossly the unopacified stomach, small bowel and large bowel demonstrate to be within normal limits. There is no evidence for bowel dilatation/or free air. The appendix is normal. The urinary bladder demonstrate to be unremarkable. The prostate gland is normal. The aorta demon strate to be normal. There is no retroperitoneal lymphadenopathy. There is no evidence for ascites or and/or significant abnormal fluid collections. The rest of the soft tissue and bony structures are within normal limits. IMPRESSION: No acute intra-abdominal process. Mild fatty infiltration of the liver. Right renal cyst. Electronically signed by: Ron Marti MD 04/03/2022 3:09 AM CDT Due to temporary technical issues with the PACS/Fluency reporting system, reports are being signed by the in house radiologists without review as a courtesy to insure prompt reporting. The interpreting radiologist is fully responsible for the content of the report.
== END 2022-04-03 03:28 | disposition home or self-care (01) ==
LOC: ER 23:46
DX: R11.2 Nausea with vomiting, unspecified (principal); R10.13 Epigastric pain; Z79.82 Long term (current) use of aspirin
CPT/HCPCS: 85025; 36415; 83690; 80053; 74177; Q9967; J7030; J2405; J3490; 96374; 96375; 99284

== ENCOUNTER 2022-04-06 06:46 | Day surgery (SDC) | payer BC ==
[2022-04-06] MEDS ORDERED: Ringers Lactate 1,000 ML IV ONE (07:27)
[2022-04-06] MEDS ORDERED: propofoL 200 MG/20 ML VIAL IV ONE (07:57)
[2022-04-06] MEDS ORDERED: LIDOCAINE 1% MPF 5 ML VIAL ONE (07:57)
[2022-04-06 08:08] LABS: Potassium 3.9 mmol/L (3.5-5.1)
--- NOTE | 2022-04-06 08:09 | RAD REPORT ---
EXAM DESCRIPTION: RAD - Chest Pa And Lat (2 Views) - 04/06/2022 7:22 am CLINICAL HISTORY: PRE-OP COMPARISON: Single-view chest 10/03/2019 TECHNIQUE: Frontal and lateral views of the chest were obtained. FINDINGS: The lungs are clear. Heart size is normal and central vasculature is within normal limit s. No pleural effusion or pneumothorax seen. No acute bony finding noted. No aortic abnormality. No significant change from comparison study. IMPRESSION: No acute cardiopulmonary process.
--- NOTE | 2022-04-06 08:14 | ENDO RPT ---
[address], [address] EGD PROCEDURE REPORT EXAM DATE: 04/06/2022 PATIENT NAME: Bernardo Glover MR#: [id number] BIRTHDATE: 1970 ATTENDING: Jason Calderon DR STATUS: outpatient NYLON OPERATOR: Monie Mathis RN and Jim Marin [facility] INDICATIONS: The patient is a 51 yr old Male here for an EGD due to belching and nausea and vomiting PROCEDURE PERFORMED: EGD with biopsy for H. pylori MEDICATIONS: Per Anesthesia. TOPICAL ANESTHETIC: none CONSENT: The patient understands the risks and benefits of the procedure and understands that these risks include, but are not limited to: sedation, allergic reaction, infection, perforation and/or bleeding. Alternative means of evaluation and treatment include, among others: physical exam, x-rays, and/or surgical intervention. The patient elects to proceed with this endoscopic procedure. DESCRIPTION OF PROCEDURE: During intra-op preparation period all mechanical medical equipment was checked for proper function. Hand hygiene and appropriate measures for infection prevention was taken. Procedure, possible complications, and alternatives including but not limited to the possibility of bleeding, perforation, tear, infection, sepsis, need for surgery, need for blood transfusion, and anesthesia related complications were explained to the patient. After the risks, benefits and alternatives of the procedure were thoroughly explained, Informed consent was verified, confirmed and timeout was successfully executed by the treatment team. The patient was placed in the left lateral position. The patient was anesthetized with topical anesthesia. Through the anesthetized oropharyngeal area, the scope was passed without any difficulty. The [id number] ([id number]) endoscope was introduced through the mouth and advanced to the second portion of the duodenum. Retroflexed views revealed a small hiatal hernia. The gastroscope was then slowly withdrawn and removed. Moderate gastritis was found in the total stomach. A biopsy for H. pylori was taken. Multiple biopsies were obtained and sent to pathology. ADVERSE EVENTS: There were no complications. IMPRESSIONS: Moderate gastritis was found in the total stomach RECOMMENDATIONS: 1. acid suppression therapy 2. anti-reflux regimen 3. await biopsy results 4. follow-up: office 2 week(s) 5. avoid NSAIDS 6. follow-up of helicobacter pylori status, treat if indicated REPEAT EXAM: Jason Calderon DR eSigned: Jason Calderon DR 04/06/2022 8:14 AM cc: CPT CODES: ICD9 CODES: PATIENT NAME: Bernardo Glover MR#: [id number]
[2022-04-06 08:43] VITALS: BP 111/77; TEMP 96.6
[2022-04-06 09:20] VITALS: O2SAT 99
--- NOTE | 2022-04-09 10:10 | EKG ---
Test Date: 2022-04-06 Test Time: 06:10:43 Power Press Tender: CD MEASUREMENT RESULTS: Intervals: Rate: 68 WY: 182 QRSD: 84 QT: 374 QTc: 397 [place]: P: 35 WY: 182 QRS: 52 T: 59 INTERPRETIVE STATEMENTS: Normal sinus rhythm Normal ECG Compared to ECG 10/03/2019 14:50:36 No significant changes Electronically Signed On 04-09-22 10:03:15 CDT by Yaya Leung
== END 2022-04-06 08:50 | disposition home or self-care (01) ==
LOC: OR 06:46
PROVIDERS: ATTEND Surgery
PROC: 0DB78ZX Excision of Stomach, Pylorus, Via Natural or Artificial Opening Endoscopic, Diagnostic (ICD-10-PCS; 2022-04-06)
PROC: 0DB68ZX Excision of Stomach, Via Natural or Artificial Opening Endoscopic, Diagnostic (ICD-10-PCS; 2022-04-06)
PROC: 0DB58ZX Excision of Esophagus, Via Natural or Artificial Opening Endoscopic, Diagnostic (ICD-10-PCS; 2022-04-06)
PROC: 0DB98ZX Excision of Duodenum, Via Natural or Artificial Opening Endoscopic, Diagnostic (ICD-10-PCS; principal; 2022-04-06 08:00)
DX: K29.50 Unspecified chronic gastritis without bleeding (principal); K29.80 Duodenitis without bleeding; Z20.822 Contact with and (suspected) exposure to COVID-19
CPT/HCPCS: 93005; 80048; 36415; 88312; 88305; 71046; 43239; U0003; J2704; J7120